=== PATIENT | male | born 1985 | race Two or more races ===

== ENCOUNTER 2024-07-04 16:42 | Emergency (ER) | payer SELFPAY ==
[~2024-07-04] VITALS: Ht 170.2 cm; Wt 74.0 kg
[2024-07-04 16:46] VITALS: TEMP 98
[2024-07-04] MEDS: PERTUSS(ACELL),DIPH,TET/PF 0.5 ML SYRINGE [ADULT] IM. ONE (20:08)
[2024-07-04 20:30] VITALS: BP 118/72; PULSE 71; RESP 16; O2SAT 100
== END 2024-07-04 20:51 | disposition home or self-care (01) ==
LOC: EMS 16:42
DX: S01.81XA Laceration without foreign body of other part of head, initial encounter (principal); W22.8XXA Striking against or struck by other objects, initial encounter; Y93.89 Activity, other specified; Y92.89 Other specified places as the place of occurrence of the external cause; Y99.8 Other external cause status
CPT/HCPCS: 12011; 90471; 90715; 99283